=== PATIENT | male | born 1965 | race African-American/Black ===

== ENCOUNTER 2016-09-11 08:01 | Emergency (ER) | payer OTHER ==
[~2016-09-11] VITALS: Ht 175.3 cm; Wt 129.3 kg
[~2016-09-11 08:01] MED LIST: AMLODIPINE BESY10 M1 PO; CYCLOBENZAPRINE10 M1 PO; LISINOPRIL-HCT1 EAC1 PO; NAPROSYN500 M1 PO; VICODIN 5-3001 EACH PO
--- NOTE | 2016-09-11 08:23 | ED MVC/FALL/TRAUMA COMPLAINT ---
History of Present Illness General Chief Complaint: Fall Stated Complaint: L SIDED PAIN S/P FALL LAST PM Source: patient Exam Limitations: no limitations Vital Signs & Intake/Output Vital Signs & Intake/Output Vital Signs Date Time Temp Pulse Resp B/P Pulse O2 O2 Flow FiO2 Ox Delivery Rate 09/11 1006 96.8 80 20 133/58 96 Room Air 09/11 0807 98.1 79 18 135/88 99 Room Air Allergies Coded Allergies: Penicillins (UNKNOWN 03/14/16) Reconcile Medications Amlodipine Besylate 10 MG TABLET 1 TAB PO DAILY HEART (Reported) Cyclobenzaprine HCl 10 MG TABLET 1 TAB PO TID PRN MUSCLE RELAXANT MAY CAUSE DROWSINESS Cyclobenzaprine HCl 10 MG TABLET 1 TAB PO QPM PRN MUSCLE SPASMS Hydrocodone/Acetaminophen (Vicodin 5-300 MG Tablet) 5 MG-300 MG TABLET 1 TAB PO Q6 PRN pain Hydrocodone/Acetaminophen (Vicodin 5-300 MG Tablet) 5 MG-300 MG TABLET 1 TAB PO BID PRN PAIN Lisinopril/Hydrochlorothiazide (Lisinopril-Hctz 20-25 MG Tab) 20 MG-25 MG TABLET 1 TAB PO DAILY HEART (Reported) Meloxicam (Mobic) 15 MG TABLET 1 TAB PO DAILY PRN PAIN/INFLAMMATION Naproxen (Naprosyn) 500 MG TABLET 1 TAB PO BID PRN PAIN Triage Note: 51 Y/O MALE C/O L FLANK PAIN, "BELOW THE RIBS" SINCE THURSDAY; STATES HE "THINKS I SLEPT WRONG AND TWEEKED SOMETHING .. THEN I TRIPPED ON A DOOR JAM AND NOW IT HURTS WORSE". PT TOOK NAPROXEN 2 DAYS AGO - STATES "I DONT KNOW" WHEN ASKED IF MEDICATION HELPED HIM. IN W/C FOR COMFORT. Triage Nurses Notes Reviewed? yes HPI: Patient is a 51 year old male presents complaining of severe left sided back pain. Patient tripped over a door jam at work on Thursday, and had the onset of pain. Pain worsening since then. Pain is sharp worsens with movement. Patient took Aleve 2 days ago, is unsure if it provided any relief. Pain is currently 10/10. Patient denies hematuria, numbness, weakness, abdominal pain, dyspnea. (SHON MCGRAW,OLU) Past History Travel History Traveled to [place] past 21 day No Medical History Any Pertinent Medical History? see below for history Neurological: NONE EENT: NONE Cardiovascular: hypertension Respiratory: NONE Gastrointestinal: NONE Hepatic: NONE Renal: NONE Musculoskeletal: NONE Psychiatric: NONE Endocrine: NONE Blood Disorders: NONE Cancer(s): NONE SEAT TRIMMER/Reproductive: NONE Surgical History Surgical History: non-contributory Psychosocial History What is your primary language Brazilian Tobacco Use: Quit >30 days ago Family History Hx Contributory? No (OLU GUTIÉRREZ) Review of Systems Review of Systems Constitutional: Denies: chills, fever. Eyes: Reports: no symptoms. Ears, Nose, Throat, Mouth: Reports: no symptoms. Respiratory: Reports: no symptoms. Cardiovascular: Reports: no symptoms. Gastrointestinal/Abdominal: Reports: no symptoms. Genitourinary: Reports: no symptoms. Musculoskeletal: Reports: see HPI. Skin: Reports: no symptoms. Neurological/Psychological: Reports: no symptoms. (OLU GUTIÉRREZ) Physical Exam Physical Exam General Appearance: alert, awake, obese Head: atraumatic, normal appearance Eyes: Bilateral: normal appearance, PERRL, EOMI. Ears, Nose, Throat, Mouth: hearing grossly normal, moist mucous membrane Neck: normal inspection, supple, full range of motion Respiratory: normal breath sounds, chest non-tender, no respiratory distress, lungs clear Cardiovascular: regular rate/rhythm Peripheral Pulses: 2+ dorsalis pedis (R), 2+ dorsalis pedis (L) Gastrointestinal: soft, non-tender Back: no vertebral tenderness, point tenderness left lateral lumbar in the area of L1/L2 Extremities: normal range of motion, negative straight leg raise bilaterally Neurologic/Psych: no motor/sensory deficits, awake, alert, oriented x 3, normal mood/affect Skin: intact, normal color, warm/dry Core Measures ACS in differential dx? No Severe Sepsis Present: No Septic Shock Present: No (OLU GUTIÉRREZ) Progress Differential Diagnosis: aoritic dissection, abd injury, C/T/L spine injury, ext injury, ICH, pelvis injury, pnemothorax, spinal cord injury Plan of Care: Orders Procedure Date/time Status URINALYSIS 09/11 0832 Complete Laboratory Tests 09/11/16 0837: Urine Color YEL, Urine Clarity CLEAR, Urine pH 7.0, Ur Specific [place] 1.020, Urine Protein NEG, Urine Ketones NEG, Urine Nitrite NEG, Urine Bilirubin NEG, Urine Urobilinogen 0.2, Ur Leukocyte Esterase NEG, Ur Microscopic SEDIMENT EXAMINED, Urine RBC 1-3, Ur Epithelial Cells FEW, Urine Bacteria RARE H, Urine Hemoglobin TRACE-INTACT H, Urine Glucose NEG 09/11/2016 8:37:39 AM: Pain worsens with movement, appears musculoskeletal in etiology. Patient complaining of severe pain, concerned that there is internal bleeding, requesting imaging. Results of CT scan discussed with patient. Discussed findings regarding L3-L4 on the CT scan. Instructed patient to follow up with his primary care doctor regarding this. No acute neurovascular abnormalities. Patient appears stable for discharge and outpatient follow-up. Patient instructed to follow up with occupational medicine tomorrow. (SHON MCGRAW,OLU) Diagnostic Imaging: Viewed by Me: CT Scan. Discussed w/RAD: CT Scan. Radiology Impression: PATIENT: MEE AYALA PRESENT AGE: 51 PATIENT ACCOUNT NO: [id number] : 65 LOCATION: [facility] ORDERING PHYSICIAN: OLU MCGRAW SERVICE DATE: 09/11/16 EXAM TYPE: CAT - CT ABD & PELVIS W/O IV CONTRAS EXAMINATION: CT ABDOMEN AND PELVIS WITHOUT CONTRAST CLINICAL INFORMATION: Severe left lateral back pain after fall. Evaluate for retroperitoneal bleed. COMPARISON: None TECHNIQUE: Multidetector volumetric imaging was performed from the superior aspect of the liver through the pubic symphysis. Sagittal and coronal reformatted images were obtained on the technologist's workstation. DLP: 1342 mGy-cm FINDINGS: LUNG BASES: Mild atelectasis within lower lobes. LIVER, GALLBLADDER, AND BILIARY TREE: Unremarkable for a noncontrast examination. PANCREAS: Unremarkable. SPLEEN: Unremarkable. ADRENAL GLANDS: Unremarkable. KIDNEYS AND URETERS: The kidneys are normal in size, shape, and attenuation. No hydronephrosis, hydroureter, or calculi seen. No perinephric stranding. BLADDER: Unremarkable. GASTROINTESTINAL TRACT: Bowel loops are normal in size. Appendix is normal. No evidence of acute inflammation or obstruction along the gastrointestinal tract. No ascites or pneumoperitoneum. ABDOMINAL WALL: Minimal protrusion of fat into the umbilicus. No significant findings in the abdominal wall. LYMPH NODES: No pathologic sized lymph nodes within the abdomen or pelvis. VASCULAR: Mild atherosclerotic calcification of the abdominal aorta without aneurysm. No retroperitoneal hematoma. PELVIC VISCERA: Prostate gland is unremarkable. No pelvic free fluid. OSSEOUS STRUCTURES: The visualized lower thoracic and lumbar vertebra have normal height and alignment. No acute fractures within the anterior or posterior elements. Incidentally detected is patchy sclerosis and mild trabecular thickening within L3 and L4 vertebral bodies, most likely caused by Paget disease of bone. IMPRESSION: 1. No retroperitoneal hematoma. 2. No acute fracture or malalignment within the visualized lower thoracic or lumbar spine. Incidentally detected is patchy sclerosis and mild trabecular thinning involving L3 and L4 vertebral bodies, most likely caused by Paget disease. DICTATED BY: CHERELLE YUAN MD DATE/TIME DICTATED:09/11/16940 INTELLIGENCE OFFICER:VIJI DATE/TIME TRANSCRIBED:09/11/16940 CONFIDENTIAL, DO NOT COPY WITHOUT APPROPRIATE AUTHORIZATION. <Electronically signed in Other Vendor System> SIGNED BY: CHERELLE YUAN MD 09/11/16 0955 (OLU GUTIÉRREZ) Departure Departure Time of Disposition: 1001 Disposition: HOME OR SELF CARE Condition: Stable Clinical Impression Primary Impression: Lumbar strain Qualifiers: Encounter type: initial encounter Qualified Code: S39.012A - Strain of muscle, fascia and tendon of lower back, initial encounter Referrals: PB ZAVALA MD (PCP/Family) Additional Instructions: Rest, apply heat to the affected area for 20 minutes 4-5 times a day. Follow-up with occupational medicine tomorrow for further evaluation. Call today for appointment. Return to the emergency department if numbness, weakness, pain uncontrollable, or worsening of symptoms. Departure Forms: Customer Survey General Discharge Information Prescriptions: Current Visit Scripts Meloxicam (Mobic) 1 TAB PO DAILY PRN PAIN/INFLAMMATION #10 TAB Cyclobenzaprine HCl 1 TAB PO TID PRN MUSCLE RELAXANT #20 TAB MAY CAUSE DROWSINESS Hydrocodone/Acetaminophen (Vicodin 5-300 MG Tablet) 1 TAB PO Q6 PRN pain #10 TAB (OLU GUTIÉRREZ) PA/STEM MOUNTER Co-Sign Statement Statement: ED Attending supervision documentation- [] I saw and evaluated the patient. I have also reviewed all the pertinent lab results and diagnostic results. I agree with the findings and the plan of care as documented in the PA's/STEM MOUNTER's documentation. [X] I have reviewed the ED Record and agree with the PA's/STEM MOUNTER's documentation. [] Additions or exceptions (if any) to the PAs/STEM MOUNTER's note and plan are summarized below: [] (PUNEET ENGLAND DO)
--- NOTE | 2016-09-11 09:55 | CT SCAN REPORT ---
EXAMINATION: CT ABDOMEN AND PELVIS WITHOUT CONTRAST CLINICAL INFORMATION: Severe left lateral back pain after fall. Evaluate for retroperitoneal bleed. COMPARISON: None TECHNIQUE: Multidetector volumetric imaging was performed from the superior aspect of the liver through the pubic symphysis. Sagittal and coronal reformatted images were obtained on the technologist's workstation. DLP: 1342 mGy-cm FINDINGS: LUNG BASES: Mild atelectasis within lower lobes. LIVER, GALLBLADDER, AND BILIARY TREE: Unremarkable for a noncontrast examination. PANCREAS: Unremarkable. SPLEEN: Unremarkable. ADRENAL GLANDS: Unremarkable. KIDNEYS AND URETERS: The kidneys are normal in size, shape, and attenuation. No hydronephrosis, hydroureter, or calculi seen. No perinephric stranding. BLADDER: Unremarkable. GASTROINTESTINAL TRACT: Bowel loops are normal in size. Appendix is normal. No evidence of acute inflammation or obstruction along the gastrointestinal tract. No ascites or pneumoperitoneum. ABDOMINAL WALL: Minimal protrusion of fat into the umbilicus. No significant findings in the abdominal wall. LYMPH NODES: No pathologic sized lymph nodes within the abdomen or pelvis. VASCULAR: Mild atherosclerotic calcification of the abdominal aorta without aneurysm. No retroperitoneal hematoma. PELVIC VISCERA: Prostate gland is unremarkable. No pelvic free fluid. OSSEOUS STRUCTURES: The visualized lower thoracic and lumbar vertebra have normal height and alignment. No acute fractures within the anterior or posterior elements. Incidentally detected is patchy sclerosis and mild trabecular thickening within L3 and L4 vertebral bodies, most likely caused by Paget disease of bone. IMPRESSION: 1. No retroperitoneal hematoma. 2. No acute fracture or malalignment within the visualized lower thoracic or lumbar spine. Incidentally detected is patchy sclerosis and mild trabecular thinning involving L3 and L4 vertebral bodies, most likely caused by Paget disease.
[2016-09-11] MEDS ORDERED: VICODIN 5-3001 EACH PO (10:02)
[2016-09-11] MEDS ORDERED: CYCLOBENZAPRINE10 M1 PO (10:02)
[2016-09-11] MEDS ORDERED: MOBIC15 M1 PO (10:02)
[2016-09-11 10:06] VITALS: BP 133/58
== END 2016-09-11 10:12 ==
LOC: ERH 08:01
DX: S39.012A Strain of muscle, fascia and tendon of lower back, initial encounter (principal); W18.09XA Striking against other object with subsequent fall, initial encounter; Y93.9 Activity, unspecified; Y92.9 Unspecified place or not applicable
CPT/HCPCS: 74176; 81001